=== PATIENT | female | born 1950 | race Hispanic/Latino ===

== ENCOUNTER 2018-01-26 15:30 | Observation (INO) | payer OTHER, MEDICARE ==
[~2018-01-26] VITALS: Ht 161.3 cm; Wt 79.7 kg
[2018-01-26 15:00] LABS: BASOPHILS % (AUTO) 1.4 % (0.0-5.0); EOSINOPHILS % (AUTO) 0.6 % (0.0-8.0); HEMATOCRIT 43.2 % (36-48); LYMPHOCYTES % (AUTO) 21.4 % (21.0-51.0); MEAN CORPUSCULAR HEMOGLOBIN 26.6 pg (27.0-33.0); MEAN CORPUSCULAR HGB CONC 33.4 g/dL (32.0-36.0); MEAN CORPUSCULAR VOLUME 79.7 fL (79-99); MONOCYTES % (AUTO) 8.4 % (3.0-13.0); NEUTROPHILS % (AUTO) 68.2 % (40.0-77.0); PLATELET COUNT (AUTO) 286 K/uL (130-400); RED BLOOD CELL COUNT(AUTO) 5.43 MIL/uL (4.00-5.50); RED CELL DISTRIBUTION WIDTH 15.8 % (11.0-15.5); WHITE BLOOD COUNT (AUTO) 7.9 K/uL (4.8-10.8)
[2018-01-26 15:01] VITALS: BP 162/76
[2018-01-26 15:07] LABS: CREATININE 0.7 mg/dL (0.5-1.5); POTASSIUM 4.6 mmol/L (3.5-5.1)
[2018-01-26 15:11] LABS: INR 1.02 (0.85-1.15); PROTHROMBIN TIME 10.7 SEC (9.6-11.6)
[~2018-01-26 15:30] MED LIST: DULO60CA44 PO; RANI150C4 PO; SIMV40TA59 PO
[2018-01-26] MEDS ORDERED: DOCU100C19 PO (15:36)
[2018-01-26] MEDS ORDERED: ERGO500014 PO (15:36)
[2018-01-26] MEDS ORDERED: GABA-531 PO (15:36)
[2018-01-26] MEDS ORDERED: HYDR25TA PO (15:36)
[2018-01-26] MEDS ORDERED: METO25TA6 PO (15:36)
[2018-01-26] MEDS ORDERED: CLON1TAB5 PO (15:39)
[2018-01-27] VITALS (19 sets, daily range): BP systolic 105–131; BP diastolic 54–87
[2018-01-27] MEDS ORDERED: WATER FOR INJECTION,STERILE 20 ML VIAL IJ ONE (08:00)
[2018-01-27] MEDS ORDERED: CEFAZOLIN SODIUM 1 GM VIAL ONE ×2 (10:26→12:22)
[2018-01-27] MEDS ORDERED: LACTATED RINGERS 1000ML 1,000 ML IV ONE (10:26)
[2018-01-27] MEDS: CEFAZOLIN SODIUM 1 GM VIAL IVP ONE ×2 (10:30→14:45)
[2018-01-27] MEDS ORDERED: ONDANSETRON HCL 4 MG/2 ML VIAL ONE (14:07)
[2018-01-27] MEDS ORDERED: LIDOCAINE PF 2% 5ML ABBOJECT ONE (14:07)
[2018-01-27] MEDS ORDERED: ROCURONIUM BROMIDE 10MG/1ML 5ML VL ONE (14:07)
[2018-01-27] MEDS ORDERED: PROPOFOL 10 MG/ML 20ML VIAL IV ONE (14:07)
[2018-01-27] MEDS ORDERED: DEXAMETHASONE SOD PHOSPHATE 4 MG/ML 1ML VIAL ONE (14:07)
[2018-01-27] MEDS ORDERED: FENTANYL CITRATE PF 50 MCG/1 ML 2ML VIAL ONE (14:08)
[2018-01-27] MEDS ORDERED: MIDAZOLAM HCL 1 MG/ML 2ML VIAL ONE (14:08)
[2018-01-27] MEDS: SODIUM CHLORIDE 0.9% 1000ML 1,000 ML IV SCH (18:18)
[2018-01-27] MEDS ORDERED: FERROUS FUMARATE 324 MG TABLET PO PRN (18:30)
[2018-01-27] MEDS ORDERED: HYDROCODONE/ACETAMINOPHEN 5/325 MG TAB PO PRN ×2 (18:30)
[2018-01-27] MEDS ORDERED: PROMETHAZINE HCL 25 MG/ML 1ML AMPULE IM PRN (18:30)
[2018-01-27] MEDS ORDERED: CALCIUM CARBONATE 500 MG TABLET PO PRN (18:30)
[2018-01-27] MEDS ORDERED: POTASSIUM CHLORIDE 10% ELIXIR 20 MEQ/15 ML UDCUP PO PRN (18:30)
[2018-01-27] MEDS ORDERED: TEMAZEPAM 15 MG CAPSULE PO PRN (18:30)
[2018-01-27] MEDS ORDERED: POTASSIUM CHLORIDE 20 MEQ ERTAB PO PRN (18:30)
[2018-01-27] MEDS ORDERED: POTASSIUM CHLORIDE 20MEQ/100ML 100 ML IV PRN (18:30)
[2018-01-27] MEDS ORDERED: DIPHENHYDRAMINE HCL 25 MG CAPSULE PO PRN (18:30)
[2018-01-27] MEDS ORDERED: DiphenhydrAMINE HCL 50 MG/ML VIAL IVP PRN (18:30)
[2018-01-27] MEDS ORDERED: KETOROLAC TROMETHAMINE 15MG/ML IV PRN (18:30)
[2018-01-27] MEDS: ACETAMINOPHEN EXTRA STRENGTH 500 MG TABLET PO SCH (18:30)
[2018-01-27] MEDS ORDERED: KETOROLAC TROMETHAMINE 30MG/ML IV PRN (18:30)
[2018-01-27] MEDS ORDERED: LIDOCAINE HCL-MPF 1% 2ML VIAL IVP PRN (18:30)
[2018-01-27] MEDS ORDERED: MEPERIDINE-PF 25 MG/ML SYG ONE ×2 (18:36→19:03)
[2018-01-27] MEDS: CEFAZOLIN SODIUM 1 GM VIAL IVP SCH (23:26)
[2018-01-27] MEDS ORDERED: CEFAZOLIN 2GM / 50 ML 50 ML IV SCH (23:30)
[2018-01-27] MEDS ORDERED: DOCUSATE SODIUM 100 MG CAP PO PRN (23:30)
[2018-01-28] MEDS: ACETAMINOPHEN EXTRA STRENGTH 500 MG TABLET PO SCH ×2 (00:07→10:14)
[2018-01-28 00:20] VITALS: BP 108/66
[2018-01-28] MEDS: SODIUM CHLORIDE 0.9% 1000ML 1,000 ML IV SCH (03:26)
[2018-01-28 04:18] VITALS: BP 100/63
[2018-01-28 05:49] LABS: HEMATOCRIT 32.9 % (36-48); MEAN CORPUSCULAR HEMOGLOBIN 26.9 pg (27.0-33.0); MEAN CORPUSCULAR HGB CONC 34.1 g/dL (32.0-36.0); MEAN CORPUSCULAR VOLUME 78.8 fL (79-99); NUCLEATED RED BLOOD CELLS 0.1 % (0.0-0.19); PLATELET COUNT (AUTO) 228 K/uL (130-400); RED BLOOD CELL COUNT(AUTO) 4.17 MIL/uL (4.00-5.50); RED CELL DISTRIBUTION WIDTH 15.4 % (11.0-15.5); WHITE BLOOD COUNT (AUTO) 10.5 K/uL (4.8-10.8)
[2018-01-28 05:52] LABS: CREATININE 0.7 mg/dL (0.5-1.5); POTASSIUM 3.8 mmol/L (3.5-5.1)
[2018-01-28] MEDS: CEFAZOLIN SODIUM 1 GM VIAL IVP SCH (06:02)
[2018-01-28 07:49] VITALS: BP 103/58
[2018-01-28] MEDS ORDERED: HYDROCHLOROTHIAZIDE 25 MG TABLET PO SCH (09:00)
[2018-01-28] MEDS ORDERED: POLYETHYLENE GLYCOL 3350 17 GM POWD.PACK PO SCH (09:00)
[2018-01-28] MEDS ORDERED: METOPROLOL TARTRATE 25 MG TAB PO SCH (09:00)
[2018-01-28] MEDS ORDERED: DULOXETINE HCL 30 MG CAP PO SCH (09:00)
[2018-01-28] MEDS ORDERED: FAMOTIDINE 20MG TAB 20 MG TAB PO SCH ×2 (09:00)
[2018-01-28] MEDS ORDERED: ENOXAPARIN SODIUM 40 MG/0.4 ML SYRINGE SQ SCH (09:00)
[2018-01-28 11:27] VITALS: BP 110/56
[2018-01-28] MEDS ORDERED: HYDR-2132 PO (14:06)
[2018-01-28] MEDS ORDERED: CLONAZEPAM 1 MG TABLET PO SCH (21:00)
[2018-01-28] MEDS ORDERED: ATORVASTATIN CALCIUM 10 MG TABLET PO SCH (21:00)
[2018-01-28] MEDS ORDERED: GABAPENTIN 300 MG CAPSULE PO SCH (21:00)
[2018-01-29] MEDS ORDERED: BISACODYL 5 MG TABLET.DR PO PRN (18:30)
[2018-01-30] MEDS ORDERED: BISACODYL 10 MG SUPP.RECT RC PRN (18:30)
== END 2018-01-28 16:52 | disposition home or self-care (01) ==
LOC: DAHIP 01-27 09:03 → EDSTATUS 01-27 15:30 → 4AH 01-27 19:35
PROVIDERS: ADMIT Orthopaedic Surgery; ATTEND Orthopaedic Surgery
DX: S42.302A Unspecified fracture of shaft of humerus, left arm, initial encounter for closed fracture (principal); Z79.899 Other long term (current) drug therapy; W19.XXXA Unspecified fall, initial encounter; Y93.89 Activity, other specified; Y92.099 Unspecified place in other non-institutional residence as the place of occurrence of the external cause; Y99.8 Other external cause status
CPT/HCPCS: 24430; 36415 ×2; 76000; 80048 ×2; 85025; 85027; 85610; 85730; 96372; 96374; 96376; A4218 ×3; A4452; A4565; A4930 ×2; A6223; C1713 ×4; G0378 ×33; J0690 ×4; J1100; J1650; J2001; J2175 ×2; J2250; J2405; J2704; J3010; J3490; J7030; J7120

== ENCOUNTER → 2020-12-11 | Outpatient (CLI) | payer OTHER, MEDICARE ==
[~2020-12-11] MED LIST changes: +CLON1TAB12 PO; +DOCU-282 PO; +ERGO500014 PO; +GABA-531 PO; +HYDR-2132 PO; +HYDR25TA PO; +METO25TA6 PO
== END | disposition home or self-care (01) ==
LOC: RAH 10:00
PROVIDERS: ATTEND Internal Medicine Gastroenterology
DX: R10.13 Epigastric pain (principal); R10.11 Right upper quadrant pain
CPT/HCPCS: 76700

== ENCOUNTER → 2024-01-12 | Outpatient (CLI) | payer OTHER, MEDICARE ==
[~2024-01-12] MED LIST changes: -DULO60CA44 PO; +DULO60CA45 PO
== END | disposition home or self-care (01) ==
LOC: RAH 13:44
PROVIDERS: ATTEND Family Medicine
DX: M19.011 Primary osteoarthritis, right shoulder (principal); M65.811 Other synovitis and tenosynovitis, right shoulder; M85.6 Other cyst of bone; M75.21 Bicipital tendinitis, right shoulder
CPT/HCPCS: 73218

== ENCOUNTER → 2024-04-23 | Outpatient (CLI) | payer OTHER, MEDICARE | END | disposition home or self-care (01) | LOC: RAH 13:02 | PROVIDERS: ATTEND Family Medicine | DX: E04.2 Nontoxic multinodular goiter (principal); E07.9 Disorder of thyroid, unspecified | CPT/HCPCS: 76536 ==